=== PATIENT | female | born 2005 | race African-American/Black ===

== ENCOUNTER 2025-06-29 15:23 | Emergency (ER) | payer OTHER, SELFPAY ==
[2025-06-29 15:25] VITALS: BP 103/70; PULSE 83; RESP 18; TEMP 35.9; O2SAT 100
[2025-06-29 16:50] LABS: Mucous, Urine 0 SEEN /hpf (<or=2+)
[2025-06-29 17:00] VITALS: BP 107/75; BP 109/79; BP 110/89; PULSE 70; PULSE 75; PULSE 80
[2025-06-29 17:03] LABS: Magnesium 2.0 mg/dL (1.5-2.2)
[2025-06-29 17:04] LABS: Alcohol, Blood (Medical)-Serum < 10.1 mg/dL (<=10.0)
[2025-06-29 17:06] LABS: Hematocrit 37.0 % (37-47); Hemoglobin 12.7 g/dL (12.0-15.0); Immature Granulocytes Count 0.010 X10^3/uL (0.0-0.0); Mean Corp Hgb Conc 34.3 g/dL (32-36); Mean Corpuscular Volume 87.3 fL (81-99); Mean Platelet Vol. 10.1 fl (6.2-12.0); NRBC Flagged by Analyzer 0 % (0-5); Platelet Count 222 K/mm3 (150-450); RBC Distribution Width CV 12.0 % (11.6-14.6); RBC Distribution Width SD 38.8 fl (35.1-43.9); Red Blood Count 4.24 M/mm3 (4.2-5.4); White Blood Count 5.5 K/mm3 (4.4-11.0)
[2025-06-29 17:08] LABS: Barbiturate Urine NEGATIVE (< 200 ng/mL); Benzodiazepine Urine NEGATIVE (< 200 ng/mL); PCP Urine NEGATIVE (< 25 ng/mL); THC Urine NEGATIVE (< 50 ng/mL)
[2025-06-29 17:21] LABS: AST(SGOT) 19 U/L (<=31); Alanine Aminotransfer ALT/SGPT 21 U/L (<=34); Albumin, Serum 4.4 g/dL (3.5-5.0); Alkaline Phosphatase 39 U/L (35-104); Anion Gap 9 (5-15); BUN 15 mg/dL (4-19); BUN/Creat Ratio 16.8 RATIO (10-20); Calcium,Total 9.5 mg/dL (7.6-11.0); Carbon Dioxide 27.2 mmol/L (21.0-32.0); Chloride 102 mmol/L (98-108); Globulin 2.8 g/dL (2.2-4.2); Glucose 87 mg/dL (70-99); Potassium 4.0 mmol/L (3.3-5.1)
[2025-06-29 17:23] VITALS: BP 114/80; PULSE 70; O2SAT 100
[2025-06-29 17:31] LABS: Color, Urine Straw (Yellow); Glucose, Dipstick Normal (Normal); Ketone-Dipstick Negative (Negative); Leukocyte Esterase-Dipstick Negative /ul (Negative); Nitrite-Dipstick Negative (Negative); Occult Blood-Urine Negative /ul (Negative); Protein-Dipstick Negative (Negative); Specific Gravity, Urine 1.005 (1.002-1.030); Urine Bilirubin Dipstick Negative (Negative)
[2025-06-29 17:33] LABS: Internal QC Validated? YES +Cl - CLEAR BKGD
[2025-06-29 17:34] LABS: Pregnancy, Urine Negative Negative; Record Kit Lot#,Urine Preg 980607
[2025-06-29 18:35] LABS: Red Blood Cells-Urine 0-5 SEEN /hpf (0-5); Squamous Epithelial Cells - UA 0-5 SEEN /hpf (5-10)
[2025-06-29 19:00] VITALS: BP 122/78; PULSE 64; RESP 18; O2SAT 97
== END 2025-06-29 19:12 | disposition home or self-care (01) ==
PROVIDERS: Emergency Provider Surgery; Visit Provider Surgery
DX: R51.9 Headache, unspecified (principal); R53.1 Weakness
CPT/HCPCS: 70450; 80053; 80307; 81001; 81025; 82077; 83735; 85025; 93005; 99284; A4216